=== PATIENT | female | born 1985 | race Caucasian/White ===

== ENCOUNTER 2018-04-02 14:33 | Inpatient (IN) ==
--- NOTE | 2018-04-02 15:44 | ED ---
History of Present Illness Primary Care Physician: No Primary Care Physician Acoustical Engineer in [place] (Dr.R?) Elsy Fernandez History of Present Illness: at 38 weeks 0 days gestation, scheduled for repeat in [place], presents with vaginal bleeding and contractions since intercourse 11:30 AM this morning. Patient originally had light bleeding after intercourse, however over the day her bleeding increased and then she had a large amount of period type bleeding at 2:30 PM. She went to the [place] ED and was sent here because they do not have OB. She has also been feeling contractions throughout the day. She states she was in the ED in [place] last week for contractions and was given medicine to stop the contractions. Denies any leakage of fluid. Positive movement. OB history in this : On methadone for heroin use, smoking until 2017 OB history: [id number] c/s 39 weeks for spina bifida Radical history: None Surgical history: c/s x 1 meds: Methadone 190mg daily All: none Review of Systems All other systems reviewed negative except as stated in HPI Medications and Allergies Allergies Allergy/AdvReac Type Severity Reaction Status Date / Time No Known Allergies Allergy Unverified 04/02/18 15:01 Exam Vital signs: Vital Signs 04/02/18 14:58 Temperature 99.1 F Pulse Rate 79 Respiratory Rate 17 Blood Pressure 116/67 Narrative: GENERAL: Well-nourished, well-developed patient. SKIN: Warm and dry. HEAD: Normocephalic and atraumatic. EYES: No scleral icterus. No injection or drainage. ENT: No nasal drainage noted. Mucous membranes pink. Airway patent. NECK: Supple, trachea midline. No JVD. CARDIOVASCULAR: Regular rate and rhythm without murmurs, gallops, or rubs. RESPIRATORY: Breath sounds equal bilaterally. No accessory muscle use. ABDOMEN/GI: Abdomen soft, non-tender, bowel sounds present, no rebound, no guarding Gravid to 38 weeks size Fundal Height: 38 Cervical exam: 3/100/-2, bulging Tracing: EFM baseline GENITOURINARY: External Genitalia: intact and normal in appearance FHT's: EFM Baseline 120, category 1 tracing, positive accelerations Chelsea every 2 to 4 minutes on the monitor EXTREMITIES: No cyanosis or edema. BACK: Nontender without obvious deformity. No CVA tenderness. NEUROLOGICAL: Awake and alert. Motor and sensory grossly within normal limits. Five out of 5 muscle strength in all muscle groups. Normal speech. Assessment and Plan - Diagnosis (1) Previous delivery affecting Code(s): O34.219 - Maternal care for unspecified type scar from previous delivery Status: Acute Plan: at 38 weeks 0 days gestation, scheduled for repeat in [place], presents with vaginal bleeding and contractions since intercourse 11:30 AM this morning. -Patient 3 cm, chelsea every 2 minutes, and regular labor pattern -Admit to L&D for urgent -Attempting to obtain records from Elsy Fernandez -Tubal papers signed per patient, will need official documentation before operation -Operative labs ordered -Ancef preoperative 2 g ordered (2) Vaginal bleeding Code(s): N93.9 - Abnormal uterine and vaginal bleeding, unspecified Status: Acute Discharge Plan - Discharge Disposition Patient Disposition: 30 Still Patient - Discharge Condition Condition: Stable - Physicians Team ED Provider: Ana Cristina Pack Primary Care Provider: Primary Nikia Rouse - Rxs /Orders / Referrals /Forms Referrals: Primary Care Nikia Mcdowell [Primary Care Provider] - See Instructions - Discharge Instructions Print Language: Turkish
[2018-04-02] MEDS ORDERED: ceFAZolin 2 GM Premix Inj 2 GM/50 ML PIGGYBACK IV.SIG PRN (15:59)
[2018-04-02] MEDS ORDERED: Citric Acid/Sodium Citrate Liq 30 ML UDC PO SCH (16:00)
--- NOTE | 2018-04-02 16:07 | P.HPOB ---
History of Present Illness Primary Care Physician: No Primary Care Physician Licensed Pharmacist in [place] (Dr.R?) Elsy Fernandez History of Present Illness: at 38 weeks 0 days gestation, scheduled for repeat in [place], presents with vaginal bleeding and contractions since intercourse 11:30 AM this morning. Patient originally had light bleeding after intercourse, however over the day her bleeding increased and then she had a large amount of period type bleeding at 2:30 PM. She went to the [place] ED and was sent here because they do not have OB. She has also been feeling contractions throughout the day. She states she was in the ED in [place] last week for contractions and was given medicine to stop the contractions. Denies any leakage of fluid. Positive movement. OB history in this : On methadone for heroin use, smoking until 2017 OB history: [id number] c/s 39 weeks for spina bifida Radical history: None Surgical history: c/s x 1 meds: Methadone 190mg daily All: none Review of Systems All other systems reviewed negative except as stated in HPI Medications and Allergies Allergies Allergy/AdvReac Type Severity Reaction Status Date / Time No Known Allergies Allergy Unverified 04/02/18 15:01 Exam Vital signs: Vital Signs 04/02/18 14:58 Temperature 99.1 F Pulse Rate 79 Respiratory Rate 17 Blood Pressure 116/67 Narrative: GENERAL: Well-nourished, well-developed patient. SKIN: Warm and dry. HEAD: Normocephalic and atraumatic. EYES: No scleral icterus. No injection or drainage. ENT: No nasal drainage noted. Mucous membranes pink. Airway patent. NECK: Supple, trachea midline. No JVD. CARDIOVASCULAR: Regular rate and rhythm without murmurs, gallops, or rubs. RESPIRATORY: Breath sounds equal bilaterally. No accessory muscle use. ABDOMEN/GI: Abdomen soft, non-tender, bowel sounds present, no rebound, no guarding Gravid to 38 weeks size Fundal Height: 38 Cervical exam: 3/100/-2, bulging Tracing: EFM baseline GENITOURINARY: External Genitalia: intact and normal in appearance FHT's: EFM Baseline 120, category 1 tracing, positive accelerations [place] every 2 to 4 minutes on the monitor EXTREMITIES: No cyanosis or edema. BACK: Nontender without obvious deformity. No CVA tenderness. NEUROLOGICAL: Awake and alert. Motor and sensory grossly within normal limits. Five out of 5 muscle strength in all muscle groups. Normal speech. Assessment and Plan - Diagnosis (1) Previous delivery affecting Code(s): O34.219 - Maternal care for unspecified type scar from previous delivery Status: Acute Plan: at 38 weeks 0 days gestation, scheduled for repeat in [place], presents with vaginal bleeding and contractions since intercourse 11:30 AM this morning. -Patient 3 cm, chelsea every 2 minutes, and regular labor pattern -Admit to L&D for urgent -Attempting to obtain records from Elsy Fernandez -Tubal papers signed per patient, will need official documentation before operation -Operative labs ordered -Ancef preoperative 2 g ordered (2) Vaginal bleeding Code(s): N93.9 - Abnormal uterine and vaginal bleeding, unspecified Status: Acute
[2018-04-02] MEDS ORDERED: Morphine Sulfate PF Inj 5 MG/10 ML Ampul ONE (16:17)
[2018-04-02 16:20] LABS: Baso % (Auto) 0.3 % (0.0-2.0); Eos # (Auto) 0.2 th/mm3 (0.0-0.4); Eos % (Auto) 1.5 % (0.0-4.0); Hematocrit 36.2 % (35.0-46.0); Hemoglobin 12.3 gm/dL (11.6-15.3); Lymph # (Auto) 2.2 th/mm3 (1.0-4.8); Lymph % (Auto) 14.5 % (9.0-44.0); Mean Corpuscular HGB Conc 34.1 % (32.0-36.0); Mean Corpuscular Hemoglobin 32.3 pg (27.0-34.0); Mean Platelet Volume 9.2 fL (7.0-11.0); Mono # (Auto) 1.1 th/mm3 (0.0-0.9); Mono % (Auto) 7.3 % (0.0-8.0); Neut # (Auto) 11.4 th/mm3 (1.8-7.7); Neut % (Auto) 76.4 % (16.0-70.0); Platelet Count 174 th/mm3 (150-450); Red Blood Count 3.81 mil/mm3 (4.00-5.30); Red Cell Distribution Width 13.3 % (11.6-17.2); White Blood Count 14.9 th/mm3 (4.0-11.0)
[2018-04-02] MEDS ORDERED: Phenylephrine/NS 1000 MCG/10ML Syringe IV.PUSH ONE (16:36)
[2018-04-02 16:50] LABS: Bilirubin,Urine Negative (Negative); Clarity,Urine Clear (Clear); Color,Urine Yellow (Yellw/Straw); Glucose,Urine (UA) Negative (Negative); Leukocyte Esterase,Urine Small (Negative); Mucus,Urine Few /lpf (Occasional); Nitrite,Urine Negative (Negative); Specific Gravity,Urine 1.014 (1.002-1.035); Squamous Epithelial Cell,Urine 1 /hpf (0-5)
[2018-04-02 16:54] LABS: Amphetamine Urine With Conf Neg (Neg); Benzodiazepine Urine With Conf Neg (Neg)
[2018-04-02] MEDS ORDERED: Oxytocin 30 Units/500ml Premix 30 UNITS/500 ML BAG IV.SIG ONE (17:49)
--- NOTE | 2018-04-02 17:49 | P.OBDELI ---
Weeks Gestation: 38 Patient Started Active Labor: Yes Active Labor Start Date: 04/02/18 Active Labor Start Time: 11:30 Medical Induction of Labor: No Artificial Rupture of Membrane: Yes (inta-op) Artificial ROM Date: 04/02/18 Artificial ROM Time: 17:01 Anesthesia: Spinal Episiotomy: none Presentation: Occiput anterior Nuchal Cord: None Delayed Cord Clamping (45 sec): Yes Placenta: Manual removal Estimated blood loss (mL): 500 : Male ( 8/8, [id number], born at 17:02 on 04/[birth year]) Additional Information: at 38 weeks 0 days gestation, scheduled for repeat with BTL in [place], presents with vaginal bleeding and labor pattern. Now s/p repeat c/s with BTL on laboring patient.
[2018-04-02] MEDS ORDERED: Oxytocin 30 Units/500ml Premix 30 UNITS/500 ML BAG ONE (18:11)
[2018-04-02] MEDS ORDERED: Naloxone Inj 0.4 MG/ML Vial IV.PUSH PRN (19:34)
--- NOTE | 2018-04-02 22:30 | P.OP ---
- Preoperative Diagnosis (1) Vaginal bleeding during (2) Active labor at term (3) Previous delivery affecting (4) 38 weeks gestation of (5) Encounter for sterilization Date of procedure: 04/02/18 Procedure: Repeat lower uterine segment transverse section bilateral tubal occlusion/sterilization Anesthesia: spinal Surgeon: Ana Cristina Jordan MD Detail Maker And Fitter: Nalini ANTON PGY 3 Estimated blood loss (mL): 500 Pathology: none sent Operation and Findings: 32-year-old at 38 weeks care with Elsy Carlos as well as another provider. Scheduled for a elsewhere in 8 days. Presents to labor and delivery complaining of vaginal bleeding after intercourse and contractions. On evaluation confirmed vaginal bleeding as well as active labor proceed to . Alternatives benefits complications including but not limited to risk of permanent injury to the bowel bladder nerves blood vessels ureters any structures of the abdomen or pelvis infection hemorrhage morbidity mortality related to the surgery under anesthesia related procedures even remote possibility of . Risk of infection hemorrhage risk of injury. Risk of ectopic with tubal sterilization regardless of the method used. Patient expressed verbal understanding she was subsequently taken to the OR where she was prepped and draped after receiving spinal analgesia which was noted to be adequate. Pfannenstiel incision was made through the previous incision with a sharp scalpel. Carried down to the underlying layer of fascia. Fascia was incised in the midline and extended laterally with curved [place] scissors. Superior aspect the fascia was grasped to [place] clamps x2 dissected off from the underlying rectus muscle sharply the same was done to the inferior aspect of the fascia with care to avoid the bladder. Rectus muscle blunt entrance of the peritoneum with care to avoid the bladder. Vesicouterine peritoneum was identified bladder flap created in a sharp fashion with Metzenbaum scissors and pickups. Transverse incision on the uterus extended laterally digitally amniotomy clear fluid. A viable infant male delivered. Apgars 8 8 weight 6 pounds 11 ounces. Note once the 's head was delivered through the incision nares and mouth were bulb suctioned delayed cord clamping and infant handed to waiting pediatric team. Cord blood was collected the placenta was manually removed uterus was extra-is cleared of all clot and debris uterine incision was closed with 1 chromic in a running locked fashion followed by second imbricating Lembert suture. Good hemostasis was noted note there was a timeout that was performed prior patient was asked once again and she verbally states still wants to continue with tubal sterilization. Proceeded to identify the left tube followed out to the fimbriated end. Grasped with [place] clamp knuckling on noted and subsequently ligated x2 with plain gut. Superior to the not the tube was subsequently excised good hemostasis was noted. The same identical procedure was performed to the contralateral side. With good hemostasis noted. Paracolic gutters were cleared of all clot and debris uterus was repositioned to the pelvic abdominal cavity. And subsequently all incision sites were reinspected reevaluated good hemostasis. Proceeded to identify the fascia which was then closed with 1 PDS in a continuous fashion copious irrigation of the subcutaneous tissue which was noted to be hemostatic. Skin was closed with Monocryl in a Al needle. Patient tolerated procedure well sponge lap needle counts correct x2 mother and baby in stable condition.
[2018-04-02] MEDS ORDERED: Oxytocin 30 Units/500ml Premix 30 UNITS/500 ML BAG IV.SIG PRN (22:49)
[2018-04-03] MEDS: Ketorolac Inj 30 MG/ML (IVP) Vial IV.PUSH PRN ×4 (01:02→20:57)
[2018-04-03] MEDS: ceFAZolin Inj 2,000 MG in Sodium Chlor 0.9% Inj 80 ML IV.SIG SCH ×2 (01:47→08:53)
--- NOTE | 2018-04-03 08:07 | P.PNOB ---
Subjective Post op day: 1 Interval history: Pt seen and examined bedside this morning. No N/V. Pt ambulating and voiding without difficulty. Denies any CP/SOB/dizzyness. No calf tenderness. Not yet passing gas. Objective Vital Signs/I&O: Vital Signs 04/02/18 14:58 04/02/18 17:45 04/02/18 18:00 Temperature 99.1 F 97.6 F Pulse Rate 79 66 69 Respiratory Rate 17 18 18 Blood Pressure 116/67 113/66 108/66 04/02/18 18:15 04/02/18 18:30 04/02/18 20:00 Temperature 97.8 F 98.1 F Pulse Rate 73 66 70 Respiratory Rate 18 18 18 Blood Pressure 106/66 107/57 L 107/70 04/03/18 01:15 04/03/18 04:15 Temperature 98.3 F 98.1 F Pulse Rate 65 70 Respiratory Rate 18 18 Blood Pressure 116/68 115/56 L Intake & Output 04/02/18 04/03/18 04/03/18 18:59 06:59 18:59 Intake Total 100 / 100 Balance 100 / 100 Weight 78 kg Intake: IV 100 / 100 Ofirmev Inj 1,000 mg In 100 ml 100 / 100 @ 400 mls/hr IV.SIG Q8H [facility] Rx# :[id number] Result Diagrams: 04/02/18 16:10 Objective Remarks: GENERAL: Well-nourished, well-developed patient. CARDIOVASCULAR: Regular rate and rhythm without murmurs, gallops, or rubs. RESPIRATORY: Breath sounds equal bilaterally. No accessory muscle use. ABDOMEN/GI: Abdomen soft, non-tender, bowel sounds present. Incision: Clean, dry and intact. pressure dressing in place, no drainage. Fundus: Firm, non-tender at umbilicus. GENITOURINARY: Light to moderate bleeding. EXTREMITIES: No cyanosis or edema, non-tender, without signs of DVT. Medications and IVs: Active Medications Citric Acid/Sodium Citrate (Sodium Citrate/Citric Acid Liq) 30 ml PO MASTER PRINTER [facility] Stop: 04/06/18 15:59 Diphenhydramine HCl (Benadryl Inj) 25 mg IV.PUSH Q6H PRN PRN Reason: MILD TO MODERATE ITCHING Stop: 04/03/18 19:33 Diphenhydramine HCl (Benadryl) 50 mg PO Q6H PRN PRN Reason: MILD TO MODERATE ITCHING Stop: 04/03/18 19:33 Diphenhydramine HCl (Benadryl) 50 mg PO Q4H PRN PRN Reason: BREAKTHROUGH PAIN Last Admin: 04/02/18 21:01 Dose: 50 mg Diphtheria/Pertussis/Tetanus Vacc (Boostrix Vaccine Inj) 0.5 ml IM .ONCE ONE Stop: 04/03/18 16:01 Cefazolin Sodium/Dextrose (Ancef 2 Gm Premix Inj) 2 gm in 50 mls @ 100 mls/hr IV.SIG MASTER PRINTER PRN PRN Reason: surgery Stop: 04/06/18 15:58 Lactated Ringer's (Lr 1000 Ml Inj) 1,000 mls @ 150 mls/hr IV.CONT .Q6H40M [facility] Last Admin: 04/03/18 06:10 Dose: Not Given Cefazolin Sodium 2,000 mg/ (Sodium Chloride) 100 mls @ 200 mls/hr IV.SIG Q8H [facility] Stop: 04/03/18 09:29 Last Admin: 04/03/18 01:47 Dose: 200 mls/hr Lactated Ringer's (Lr 1000 Ml Inj) 1,000 mls @ 100 mls/hr IV.CONT .Q10H [facility] Stop: 04/03/18 18:48 Last Admin: 04/03/18 06:11 Dose: 100 mls/hr Oxytocin (Pitocin 30 Units/Ns 500 Ml Premix) 30 units in 500 mls @ 100 mls/hr IV.SIG UNSCH PRN PRN Reason: Heavy bleeding Ibuprofen (Motrin) 800 mg PO Q8H PRN PRN Reason: cramping Ketorolac Tromethamine (Toradol Inj) 30 mg IV.PUSH Q6H PRN PRN Reason: Acute Pain 1-10 Stop: 04/04/18 17:49 Last Admin: 04/03/18 07:20 Dose: 30 mg Measles/Mumps/Rubella Vaccine Live (M-M-R Ii Vaccine Inj) 0.5 ml SQ .ONCE ONE Stop: 04/03/18 16:01 Methadone HCl (Dolophine) 190 mg PO DAILY [facility] Miscellaneous Information ([facility] Nursing Information) 1 each OTHER UNSCH PRN PRN Reason: SEE LABEL COMMENTS Stop: 04/03/18 19:33 Miscellaneous Information [place] [place] 1 each OTHER UNSCH PRN PRN Reason: SEE LABEL COMMENTS Stop: 04/03/18 19:33 Naloxone HCl (Narcan Inj) 0.4 mg IV.PUSH UNSCH PRN PRN Reason: SEE LABEL COMMENTS Stop: 04/03/18 19:33 Ondansetron HCl (Zofran Inj) 4 mg IV.PUSH Q6H PRN PRN Reason: NAUSEA OR VOMITING Oxycodone/Acetaminophen (Percocet 5/325 Mg) 2 tab PO Q4H PRN PRN Reason: PAIN SCALE 6 TO 10 Last Admin: 04/03/18 07:21 Dose: 2 tab Oxycodone/Acetaminophen (Percocet 5/325 Mg) 1 tab PO Q4H PRN PRN Reason: PAIN SCALE 3 TO 5 Senna/Docusate Sodium (Yamilet-Colace) 2 tab PO Q12H PRN PRN Reason: CONSTIPATION Simethicone (Mylicon Chew) 80 mg PO QID PRN PRN Reason: FLATULENCE Sodium Chloride (Ns Flush) 2 ml IV.FLUSH BID ELIE Last Admin: 04/03/18 06:09 Dose: Not Given Sodium Chloride (Ns Flush) 2 ml IV.FLUSH PRN PRN PRN Reason: FLUSH AFTER USING IV ACCESS Assessment and Plan - Diagnosis (1) delivery delivered Code(s): O82 - Encounter for delivery without indication Status: Acute Plan: POD#1, delivered as at 38 weeks 0 days gestation via repeat c/s in labor, w / BTL. - Cont regular post-op care - Pain well-controlled on current medications - Advance diet as tolerated - contraception: s/p BTL - Cont to encourage ambulation - f/u CBC this AM
[2018-04-03] MEDS: Methadone 10 MG Tablet PO SCH (08:55)
[2018-04-03 09:36] LABS: Baso % (Auto) 0.2 % (0.0-2.0); Eos % (Auto) 0.2 % (0.0-4.0); Hematocrit 33.7 % (35.0-46.0); Hemoglobin 11.2 gm/dL (11.6-15.3); Lymph % (Auto) 10.4 % (9.0-44.0); Mean Corpuscular HGB Conc 33.2 % (32.0-36.0); Mean Corpuscular Volume 96.1 fL (80.0-100.0); Mean Platelet Volume 8.9 fL (7.0-11.0); Mono # (Auto) 1.3 th/mm3 (0.0-0.9); Mono % (Auto) 6.7 % (0.0-8.0); Neut % (Auto) 82.5 % (16.0-70.0); Platelet Count 163 th/mm3 (150-450); Red Cell Distribution Width 13.2 % (11.6-17.2); White Blood Count 19.4 th/mm3 (4.0-11.0)
[2018-04-03] MEDS: Pantoprazole Sodium 20 MG DR Tablet PO SCH (11:51)
[2018-04-03 13:22] LABS: Hepatitits B Surface Antigen Nonreactive (Nonreactive)
[2018-04-03 13:45] LABS: Hepatitis A IgM Antibody Nonreactive (Nonreactive)
[2018-04-03] MEDS ORDERED: Measles/Mumps/Rubella Vaccine Inj 0.5 ML Vial SQ ONE (16:00)
[2018-04-03] MEDS ORDERED: Diphtheria/Tetanus/Pertussis Vaccine Inj 0.5 ML Syringe IM ONE (16:00)
[2018-04-03] MEDS: Simethicone 80 MG Chew Tablet PO PRN (19:55)
[2018-04-03] MEDS: Senna/Docusate Sodium 8.6/50 MG Tablet PO PRN (21:03)
--- NOTE | 2018-04-04 08:29 | P.PNOB ---
Subjective Post op day: 2 Interval history: Patient seen and examined bedside this morning. No nausea/vomiting. Patient ambulating voiding without difficulty. Denies any chest pain/shortness of breath/dizziness. Pain well controlled on current medications. Passing gas. No calf tenderness. Objective Vital Signs/I&O: Vital Signs 04/03/18 11:20 04/03/18 17:00 04/03/18 20:14 Temperature 98.0 F 98.0 F 97.7 F Pulse Rate 66 61 76 Respiratory Rate 20 20 18 Blood Pressure 108/58 L 94/50 L 115/67 04/04/18 08:05 Temperature 98.1 F Pulse Rate 60 Respiratory Rate 16 Blood Pressure 121/68 Result Diagrams: 04/03/18 09:23 Objective Remarks: GENERAL: Well-nourished, well-developed patient. CARDIOVASCULAR: Regular rate and rhythm without murmurs, gallops, or rubs. RESPIRATORY: Breath sounds equal bilaterally. No accessory muscle use. ABDOMEN/GI: Abdomen soft, non-tender, bowel sounds present. Incision: Clean, dry and intact. Fundus: Firm, non-tender at umbilicus. pressure dressing in place. GENITOURINARY: Light to moderate bleeding. EXTREMITIES: No cyanosis or edema, non-tender, without signs of DVT. Medications and IVs: Active Medications Citric Acid/Sodium Citrate (Sodium Citrate/Citric Acid Liq) 30 ml PO TRACK WELDER [facility] Stop: 04/06/18 15:59 Cefazolin Sodium/Dextrose (Ancef 2 Gm Premix Inj) 2 gm in 50 mls @ 100 mls/hr IV.SIG TRACK WELDER PRN PRN Reason: surgery Stop: 04/06/18 15:58 Lactated Ringer's (Lr 1000 Ml Inj) 1,000 mls @ 150 mls/hr IV.CONT .Q6H40M [facility] Last Admin: 04/03/18 06:10 Dose: Not Given Oxytocin (Pitocin 30 Units/Ns 500 Ml Premix) 30 units in 500 mls @ 100 mls/hr IV.SIG UNSCH PRN PRN Reason: Heavy bleeding Ibuprofen (Motrin) 800 mg PO Q8H PRN PRN Reason: cramping Ketorolac Tromethamine (Toradol Inj) 30 mg IV.PUSH Q6H PRN PRN Reason: Acute Pain 1-10 Stop: 04/04/18 17:49 Last Admin: 04/03/18 20:57 Dose: 30 mg Methadone HCl (Dolophine) 190 mg PO DAILY [facility] Last Admin: 04/03/18 08:55 Dose: 190 mg Ondansetron HCl (Zofran Inj) 4 mg IV.PUSH Q6H PRN PRN Reason: NAUSEA OR VOMITING Oxycodone/Acetaminophen (Percocet 5/325 Mg) 2 tab PO Q4H PRN PRN Reason: PAIN SCALE 6 TO 10 Last Admin: 04/04/18 03:34 Dose: 2 tab Oxycodone/Acetaminophen (Percocet 5/325 Mg) 1 tab PO Q4H PRN PRN Reason: PAIN SCALE 3 TO 5 Pantoprazole Sodium (Protonix) 20 mg PO DAILY [facility] Last Admin: 04/03/18 11:51 Dose: 20 mg Senna/Docusate Sodium (Yamilet-Colace) 2 tab PO Q12H PRN PRN Reason: CONSTIPATION Last Admin: 04/03/18 21:03 Dose: 2 tab Simethicone (Mylicon Chew) 80 mg PO QID PRN PRN Reason: FLATULENCE Last Admin: 04/03/18 19:55 Dose: 80 mg Sodium Chloride (Ns Flush) 2 ml IV.FLUSH BID [facility] Last Admin: 04/03/18 20:58 Dose: 2 ml Sodium Chloride (Ns Flush) 2 ml IV.FLUSH PRN PRN PRN Reason: FLUSH AFTER USING IV ACCESS Assessment and Plan - Diagnosis (1) delivery delivered Code(s): O82 - Encounter for delivery without indication Status: Acute Plan: POD#2, delivered as at 38 weeks 0 days gestation via repeat c/s in labor, w / BTL. - Cont regular post-op care - Pain well-controlled on current medications - Advance diet as tolerated - contraception: s/p BTL - Cont to encourage ambulation - CBC stable - Anticipate d/c tomorrow
[2018-04-04] MEDS: Simethicone 80 MG Chew Tablet PO PRN (09:01)
[2018-04-04] MEDS: Pantoprazole Sodium 20 MG DR Tablet PO SCH (09:01)
[2018-04-04] MEDS: Senna/Docusate Sodium 8.6/50 MG Tablet PO PRN ×2 (09:01→22:20)
[2018-04-04] MEDS: Methadone 10 MG Tablet PO SCH (09:01)
--- NOTE | 2018-04-05 07:15 | P.PNOB ---
Subjective Post op day: 3 Interval history: Patient seen and examined bedside this morning. No nausea/vomiting. Patient ambulating voiding without difficulty. Denies any chest pain/shortness of breath/dizziness. Pain well controlled on current medications. Passing gas. No calf tenderness. Pt would like to go home today. Objective Vital Signs/I&O: Vital Signs 04/04/18 08:05 04/04/18 20:15 Temperature 98.1 F 97.9 F Pulse Rate 60 64 Respiratory Rate 16 18 Blood Pressure 121/68 95/45 L Result Diagrams: 04/03/18 09:23 Objective Remarks: GENERAL: Well-nourished, well-developed patient. CARDIOVASCULAR: Regular rate and rhythm without murmurs, gallops, or rubs. RESPIRATORY: Breath sounds equal bilaterally. No accessory muscle use. ABDOMEN/GI: Abdomen soft, non-tender, bowel sounds present. Incision: Clean, dry and intact. steri strips in place, no drainage. Fundus: Firm, non-tender at umbilicus. GENITOURINARY: Light to moderate bleeding. EXTREMITIES: No cyanosis or edema, non-tender, without signs of DVT. Medications and IVs: Active Medications Citric Acid/Sodium Citrate (Sodium Citrate/Citric Acid Liq) [address] REPORTER [facility] Stop: 04/06/18 15:59 Cefazolin Sodium/Dextrose (Ancef 2 Gm Premix Inj) 2 gm in 50 mls @ 100 mls/hr IV.SIG [address]ENOGRAPH[address] [facility] REPORTER PRN PRN Reason: surgery Stop: 04/06/18 15:58 Lactated Ringer's (Lr 1000 Ml Inj) 1,000 mls @ 150 mls/hr IV.CONT .Q6H40M [facility] Last Admin: 04/03/18 06:10 Dose: Not Given Oxytocin (Pitocin 30 Units/Ns 500 Ml Premix) 30 units in 500 mls @ 100 mls/hr IV.SIG UNSCH PRN PRN Reason: Heavy bleeding Ibuprofen (Motrin) 800 mg PO Q8H PRN PRN Reason: cramping Last Admin: 04/05/18 06:24 Dose: 800 mg Methadone HCl (Dolophine) 190 mg PO DAILY [facility] Last Admin: 04/04/18 09:01 Dose: 190 mg Ondansetron HCl (Zofran Inj) 4 mg IV.PUSH Q6H PRN PRN Reason: NAUSEA OR VOMITING Oxycodone/Acetaminophen (Percocet 5/325 Mg) 2 tab PO Q4H PRN PRN Reason: PAIN SCALE 6 TO 10 Last Admin: 04/05/18 06:23 Dose: 2 tab Oxycodone/Acetaminophen (Percocet 5/325 Mg) 1 tab PO Q4H PRN PRN Reason: PAIN SCALE 3 TO 5 Pantoprazole Sodium (Protonix) 20 mg PO DAILY [facility] Last Admin: 04/04/18 09:01 Dose: 20 mg Senna/Docusate Sodium (Yamilet-Colace) 2 tab PO Q12H PRN PRN Reason: CONSTIPATION Last Admin: 04/04/18 22:20 Dose: 2 tab Simethicone (Mylicon Chew) 80 mg PO QID PRN PRN Reason: FLATULENCE Last Admin: 04/04/18 09:01 Dose: 80 mg Sodium Chloride (Ns Flush) 2 ml IV.FLUSH BID ELIE Last Admin: 04/05/18 03:39 Dose: Not Given Sodium Chloride (Ns Flush) 2 ml IV.FLUSH PRN PRN PRN Reason: FLUSH AFTER USING IV ACCESS Assessment and Plan - Diagnosis (1) delivery delivered Code(s): O82 - Encounter for delivery without indication Status: Acute Plan: POD#3, delivered as at 38 weeks 0 days gestation via repeat c/s in labor, w / BTL. - Cont regular post-op care - Pain well-controlled on current medications - Advance diet as tolerated - contraception: s/p BTL - Cont to encourage ambulation - CBC stable - Anticipate d/c today
[2018-04-05 08:15] VITALS: BP 106/60; PULSE 60; TEMP 98.1; O2SAT 97
[2018-04-05 08:27] VITALS: RESP 16
[2018-04-05] MEDS: Senna/Docusate Sodium 8.6/50 MG Tablet PO PRN (08:42)
[2018-04-05] MEDS: Pantoprazole Sodium 20 MG DR Tablet PO SCH (08:42)
[2018-04-05] MEDS: Methadone 10 MG Tablet PO SCH (08:42)
== END 2018-04-05 09:38 | disposition home or self-care (01) ==
LOC: HOBED 14:33 → H2E 16:05 → H1EA 18:59
PROVIDERS: ADMIT Obstetrics & Gynecology; ATTEND Obstetrics & Gynecology